=== PATIENT | male | born 1975 | race African-American/Black ===

== ENCOUNTER 2021-02-28 17:54 | Inpatient (IN) | payer OTHER ==
[~2021-02-28] VITALS: Ht 188 cm; Wt 144.0 kg
[2021-02-28 19:39] LABS: BASO # 0.1 K/mm3 (0.0-0.2); BASO % 1.7 % (0.0-2.0); EOS # 0.1 K/mm3 (0.0-0.7); EOS % 0.9 % (0.0-4.0); GRAN # 3.8 K/mm3 (1.4-6.5); GRAN % 59.6 % (42.2-75.2); HEMATOCRIT 39.3 % (42.0-52.0); HEMOGLOBIN 12.9 g/dl (13.5-18.0); LYMPH % 30.5 % (20.0-51.0); MEAN CELL VOLUME 99 fl (80.0-100.0); MEAN CORPUSCULAR HEMOGLOBIN 33 pg (27-31); MEAN CORPUSCULAR HGB CONC 33 g/dl (33.0-37.0); MEAN PLATELET VOLUME 9.9 fl (7.4-10.4); MONO # 0.5 K/mm3 (0.1-0.6); PLATELET COUNT 270 K/mm3 (130-400); RED BLOOD COUNT 3.97 M/mm3 (4.20-5.60); REDCELL DISTRIBUTION WIDTH-CV 13.6 % (11.5-14.5)
[2021-02-28 19:56] LABS: ALBUMIN 3.7 gm/dL (3.5-5.0); BILIRUBIN,TOTAL 2.3 mg/dL (0.2-1.2); CALCIUM 8.6 mg/dL (8.4-10.2); CREATININE, serum 1.39 mg/dL (0.72-1.25); POTASSIUM 4.1 mmol/L (3.5-4.5); TOTAL PROTEIN 6.9 gm/dL (6.2-8.1)
[2021-02-28 20:02] LABS: TROPONIN-I 0.023 ng/mL (0.00-0.033)
[2021-03-01 01:54] VITALS: BP 149/112; PULSE 115; TEMP 98.1
[2021-03-01 01:58] VITALS: BP 149/112; PULSE 114; TEMP 98.1
[2021-03-01 06:14] LABS: BASO # 0.1 K/mm3 (0.0-0.2); BASO % 1.8 % (0.0-2.0); EOS # 0.1 K/mm3 (0.0-0.7); EOS % 1.4 % (0.0-4.0); GRAN # 3.4 K/mm3 (1.4-6.5); GRAN % 53.7 % (42.2-75.2); HEMATOCRIT 37.8 % (42.0-52.0); HEMOGLOBIN 12.3 g/dl (13.5-18.0); LYMPH # 2.3 K/mm3 (1.2-3.4); LYMPH % 36.3 % (20.0-51.0); MEAN CELL VOLUME 99 fl (80.0-100.0); MEAN CORPUSCULAR HEMOGLOBIN 32 pg (27-31); MEAN CORPUSCULAR HGB CONC 33 g/dl (33.0-37.0); MONO # 0.4 K/mm3 (0.1-0.6); MONO % 6.6 % (1.7-9.3); PLATELET COUNT 280 K/mm3 (130-400); RED BLOOD COUNT 3.82 M/mm3 (4.20-5.60); REDCELL DISTRIBUTION WIDTH-CV 13.5 % (11.5-14.5)
[2021-03-01 06:46] LABS: ALBUMIN 3.5 gm/dL (3.5-5.0); BILIRUBIN,TOTAL 1.7 mg/dL (0.2-1.2); CALCIUM 8.4 mg/dL (8.4-10.2); CREATININE, serum 1.38 mg/dL (0.72-1.25); POTASSIUM 3.7 mmol/L (3.5-4.5); TOTAL PROTEIN 6.4 gm/dL (6.2-8.1)
[2021-03-01 07:09] VITALS: BP 135/93; PULSE 104; TEMP 97.9
[2021-03-01 13:00] VITALS: BP 129/90; PULSE 114; TEMP 98.2
[2021-03-01 16:00] VITALS: BP 133/78; PULSE 108; TEMP 98.1
[2021-03-01 19:14] VITALS: BP 150/82; PULSE 106; TEMP 97.6
[2021-03-02] VITALS (7 sets, daily range): BP systolic 113–136; BP diastolic 49–91; PULSE 96–112; TEMP 97.7–98.3
[2021-03-02 06:33] LABS: BASO # 0.1 K/mm3 (0.0-0.2); BASO % 1.8 % (0.0-2.0); EOS # 0.1 K/mm3 (0.0-0.7); EOS % 1.8 % (0.0-4.0); GRAN # 3.1 K/mm3 (1.4-6.5); GRAN % 49.4 % (42.2-75.2); HEMATOCRIT 38.5 % (42.0-52.0); HEMOGLOBIN 12.5 g/dl (13.5-18.0); LYMPH # 2.5 K/mm3 (1.2-3.4); LYMPH % 40.2 % (20.0-51.0); MEAN CELL VOLUME 99 fl (80.0-100.0); MEAN CORPUSCULAR HEMOGLOBIN 32 pg (27-31); MEAN CORPUSCULAR HGB CONC 33 g/dl (33.0-37.0); MONO # 0.4 K/mm3 (0.1-0.6); MONO % 6.5 % (1.7-9.3); PLATELET COUNT 270 K/mm3 (130-400); RED BLOOD COUNT 3.89 M/mm3 (4.20-5.60); REDCELL DISTRIBUTION WIDTH-CV 13.5 % (11.5-14.5)
[2021-03-02 07:03] LABS: CALCIUM 8.5 mg/dL (8.4-10.2); CREATININE, serum 1.35 mg/dL (0.72-1.25); MAGNESIUM 2.2 mg/dL (1.6-2.6); POTASSIUM 3.9 mmol/L (3.5-4.5)
[2021-03-03 03:58] VITALS: BP 124/78; PULSE 95; TEMP 97.8
[2021-03-03 07:21] LABS: CALCIUM 8.4 mg/dL (8.4-10.2); CREATININE, serum 1.45 mg/dL (0.72-1.25); MAGNESIUM 2.2 mg/dL (1.6-2.6); POTASSIUM 3.9 mmol/L (3.5-4.5)
[2021-03-03 09:02] VITALS: BP 128/64; PULSE 106; TEMP 98.1
[2021-03-03] MEDS ORDERED: TOPROL XL 25MG25 MG PO (10:15)
[2021-03-03] MEDS ORDERED: ZESTRIL2.5 MG PO (10:16)
[2021-03-03] MEDS ORDERED: ASPIRIN E.C. 8181 MG PO (10:16)
[2021-03-03] MEDS ORDERED: ALDACTONE 25MG25 M1 PO (10:16)
[2021-03-03] MEDS ORDERED: LASIX 40MG TABL40 MG PO (10:16)
[2021-03-03 12:25] VITALS: BP 117/79; PULSE 104; TEMP 97.8
[2021-03-03 20:11] LABS: TB GOLD INTERPRETATION Negative (Negative)
[2021-03-03 22:25] LABS: C-ANCA 26 U/mL (0-99)
[2021-03-04 20:15] LABS: ANGIOTENSIN CONVERTING ENZYME 23 U/L (16 - 85)
[2021-03-05 09:42] LABS: ANGIOTENSIN CONVERTING ENZYME 19 U/L (16 - 85)
[2021-03-08 08:39] LABS: .HISTOPLASMA ANTIGEN SERUM None Detected (())
== END 2021-03-03 14:12 | disposition home or self-care (01) | DRG 291 ==
LOC: COL.ER 17:54 → SURG 20:27
PROVIDERS: Internal Medicine; Internal Medicine Pulmonary Disease; Nurse Practitioner; Student in an Organized Health Care Education/Training Program; ADMIT Student in an Organized Health Care Education/Training Program
DX: I11.0 Hypertensive heart disease with heart failure (principal); I50.23 Acute on chronic systolic (congestive) heart failure; N17.9 Acute kidney failure, unspecified; G47.33 Obstructive sleep apnea (adult) (pediatric); I45.81 Long QT syndrome; K76.1 Chronic passive congestion of liver; R00.0 Tachycardia, unspecified; R91.8 Other nonspecific abnormal finding of lung field; R91.1 Solitary pulmonary nodule; I42.9 Cardiomyopathy, unspecified; Z20.822 Contact with and (suspected) exposure to COVID-19; Z86.16 Personal history of COVID-19; Z79.82 Long term (current) use of aspirin
CPT/HCPCS: 99223-AI; 99232-AI; 99233-AI; 99239; J1644; J1650; J1940; J3475; Q9967